=== PATIENT | female | born 1995 | race American Indian/Alaskan Native ===

== ENCOUNTER 2017-05-25 09:59 | Emergency (ER) | payer SELFPAY ==
[2017-05-25 11:01] VITALS: BP 133/71
[2017-05-25] MEDS ORDERED: XYLOCAINE 1% MPF 5 mL INFILTRATI ONE (17:04)
[2017-05-25] MEDS ORDERED: TORADOL IM ONE (17:04)
[2017-05-25] MEDS ORDERED: ROCEPHIN IM ONE (17:04)
--- NOTE | 2017-05-25 17:10 | Emergency Department Report ---
ED ENT HPI - General Chief complaint: Sore Throat Stated complaint: SORE THROAT Time Seen by Provider: 05/25/17 16:54 Source: patient Mode of arrival: Ambulatory Limitations: No Limitations - History of Present Illness Initial comments: 22 yo female who comes in today due to a sore throat times greater than one week. She states that it has caused her problems with swallowing as well. Denies any pertinent past medical history. States that it feels like razor blades when she attempts to swallow. Afebrile, vitals within normal limits. MD complaint: sore throat -: week(s) (one ) Severity: moderate Severity scale (0 -10): 8 Quality: sharp Consistency: constant Improves with: none Worsens with: swallowing Context-Epistaxis: other (none ) Context- Dental: other (none) Context- Ear: other (none) Associated Symptoms: pain with swallowing, sore throat - Related Data Previous Rx's Medication Instructions Recorded Last Taken Type Amoxicillin [Amoxicillin TAB] 875 mg PO BID #20 tablet 05/25/17 Unknown Rx Allergies Allergy/AdvReac Type Severity Reaction Status Date / Time No Known Allergies Allergy Unverified 05/25/17 10:58 ED Dental HPI - General Chief complaint: Sore Throat Stated complaint: SORE THROAT Time Seen by Provider: 05/25/17 16:54 Source: patient Mode of arrival: Ambulatory Limitations: No Limitations - Related Data Previous Rx's Medication Instructions Recorded Last Taken Type Amoxicillin [Amoxicillin TAB] 875 mg PO BID #20 tablet 05/25/17 Unknown Rx Allergies Allergy/AdvReac Type Severity Reaction Status Date / Time No Known Allergies Allergy Unverified 05/25/17 10:58 ED Review of Systems ROS: Stated complaint: SORE THROAT Other details as noted in HPI Constitutional: malaise Eyes: denies: eye pain, eye discharge, vision change ENT: as per HPI Respiratory: denies: cough, shortness of breath, wheezing Cardiovascular: denies: chest pain, palpitations Endocrine: no symptoms reported Gastrointestinal: denies: abdominal pain, nausea, diarrhea Genitourinary: denies: urgency, dysuria, discharge Musculoskeletal: denies: back pain, joint swelling, arthralgia Skin: denies: rash, lesions Neurological: denies: headache, weakness, paresthesias Psychiatric: denies: anxiety, depression Hematological/Lymphatic: denies: easy bleeding, easy bruising ED Past Medical Hx - Past Medical History Previous Medical History?: No - Surgical History Past Surgical History?: No - Social History Smoking Status: Current Every Day Smoker Substance Use Type: None - Medications Home Medications: Home Medications Medication Instructions Recorded Confirmed Last Taken Type Amoxicillin [Amoxicillin TAB] 875 mg PO BID #20 tablet 05/25/17 Unknown Rx ED Physical Exam - General Limitations: No Limitations General appearance: anxious - Head Head exam: Present: atraumatic, normocephalic - Eye Eye exam: Present: normal appearance - ENT ENT exam: Present: other (tonsillitis-right ) - Neck Neck exam: Present: lymphadenopathy (right anterior) - Respiratory Respiratory exam: Present: normal lung sounds bilaterally. Absent: respiratory distress - Cardiovascular Cardiovascular Exam: Present: regular rate, normal rhythm. Absent: systolic murmur, diastolic murmur, rubs, gallop - Extremities Exam Extremities exam: Present: normal inspection - Back Exam Back exam: Present: normal inspection - Neurological Exam Neurological exam: Present: alert, oriented X3 - Psychiatric Psychiatric exam: Present: anxious - Skin Skin exam: Present: warm, dry, intact, normal color. Absent: rash ED Course Vital Signs 05/25/17 10:58 Temperature 98.9 F Pulse Rate 77 Respiratory 16 Rate Blood Pressure 133/71 O2 Sat by Pulse 100 Oximetry - Reevaluation(s) Reevaluation #1: 05/25/17 17:43 Sore throat improved. Plan to discharge home with po antibiotics if she can swallow. ED Medical Decision Making - Medical Decision Making Tonsillitis-right Pharyngitis - Differential Diagnosis tonsillitis, pharyngitis Critical care attestation.: If time is entered above; I have spent that time in minutes in the direct care of this critically ill patient, excluding procedure time. ED Disposition Clinical Impression: Acute tonsillitis, Pharyngitis Disposition: - TO HOME OR SELFCARE Is pt being admited?: No Does the pt Need Aspirin: No Condition: Stable Instructions: Tonsillitis (ED), Pharyngitis (ED) Additional Instructions: Take medicine as prescribed. May take tylenol 650 mg by mouth every 6-8 hours as needed for pain and temperature greater than 100.4. Prescriptions: Amoxicillin [Amoxicillin TAB] 875 mg PO BID #20 tablet Referrals: PRIMARY CARE,MD [Primary Care Provider] - 3-5 Days Time of Disposition: 17:46
== END 2017-05-25 17:58 | disposition home or self-care (01) ==
LOC: ED 09:59
DX: J03.90 Acute tonsillitis, unspecified (principal); F17.200 Nicotine dependence, unspecified, uncomplicated
CPT/HCPCS: 87116; 87430; 96372; 99282; J0696; J1885; J2930

== ENCOUNTER 2017-06-10 08:45 | Emergency (ER) | payer SELFPAY ==
--- NOTE | 2017-06-10 13:47 | Emergency Department Report ---
HPI - General Chief Complaint: Sore Throat Time Seen by Provider: 06/10/17 13:46 - HPI HPI: Patient reports that she has swollen tonsils. She said her throat hurts at 110. Denies any drooling. Denies any nausea or vomiting. Denies any nasal congestion. Denies coughing, shortness of breath or problem controlling secretions. Denies any fever or chills. Patient says she was here on 2017 and he gave her amoxicillin but penicillin doesn't usually work for her so she is back today. ED Past Medical Hx - Past Medical History Previous Medical History?: No - Surgical History Past Surgical History?: No - Family History Family history: hypertension - Social History Smoking Status: Current Every Day Smoker Substance Use Type: Alcohol - Medications Home Medications: Home Medications Medication Instructions Recorded Confirmed Last Taken Type Amoxicillin [Amoxicillin TAB] 875 mg PO BID #20 tablet 05/25/17 Unknown Rx Amoxicillin/K Clav Tab [Augmentin 1 tab PO Q12HR 10 Days #20 tab 06/10/17 Unknown Rx 875 mg] Cetirizine HCl [ZyrTEC] 10 mg PO QAM 10 Days #10 capsule 06/10/17 Unknown Rx Fluticasone [Flonase] 1 spray NS QDAY 1 Days #1 bottle 06/10/17 Unknown Rx ED Review of Systems ROS: Stated complaint: SORE THROAT Other details as noted in HPI Comment: All other systems reviewed and negative Constitutional: no symptoms reported Eyes: denies: eye pain, eye discharge ENT: throat pain. denies: ear pain, congestion Respiratory: no symptoms reported Cardiovascular: denies: chest pain, palpitations, dyspnea on exertion, edema, syncope, paroxysmal nocturnal dyspnea Gastrointestinal: denies: nausea, vomiting Musculoskeletal: denies: back pain, joint swelling, arthralgia, myalgia Skin: denies: rash Neurological: denies: headache, numbness, paresthesias, confusion, abnormal gait Physical Exam - Physical Exam Vital Signs: Vital Signs 06/10/17 08:59 Temperature 98.8 F Pulse Rate 74 Respiratory 16 Rate Blood Pressure 160/82 O2 Sat by Pulse 100 Oximetry General: This is a 22-year-old female well-nourished well-developed in no acute distress. Physical Exam: Head: Normocephalic atraumatic Ears:BIateral TM congested without erythema and loss of bony landmarks. Augustus EAC with normal exam. No mastoid bone tenderness. Mouth: Moist, no pharyngeal erythema or exudate . Mild tonsillar erythema without exudate. UVULA midline and oral airways patent. No peritonsillar abscess Neck: Nontender to palpate, supple, normal range of motion. No adenopathy. No c- spine tenderness. Nose: Bilateral nasal mucosa congested/erythema with clear drainage. Maxillary and frontal sinuses tender to palpate. Eyes: Sclerae and conjunctiva without injection. Bilateral pupils equal and reactive to light. Bilateral lids are normal. Normal accommodation.BEOMI Lungs: Clear to auscultate bilaterally, no rhonchi wheezes or rales. Normal work of breathing and no chest wall tenderness CV: S1, S2. Regular rate and rhythm negative murmur. Capillary refill is less than 3 seconds Skin: Clean dry and intact, no rashes or lesions Psych: Normal mood and behavior ED Course Vital Signs 06/10/17 08:59 Temperature 98.8 F Pulse Rate 74 Respiratory 16 Rate Blood Pressure 160/82 O2 Sat by Pulse 100 Oximetry - Reevaluation(s) Reevaluation #1: 06/10/17 14:20 Patient stable throughout ED stay ED Medical Decision Making - Medical Decision Making ED course: Patient here report sore throat and that she came on 05/25/2017 and was treated for sore throat with amoxicillin which she said this usually work for her. I discussed the patient that her tonsils are large but I think that her sore throat is coming from sinus infection. Patient with bilateral TM congestion and bilateral nasal mucosal congestion with erythema and bilateral frontal or maxillary sinus tenderness to palpation. I Discussed with her that I' ll put her on antibiotic and she'll need follow-up with her primary care physician which she doesn't have one so refer her to some [facility]. It was undescended discharge instruction and treatment plan and discharged home in stable condition with prescription for Augmentin, Zyrtec and Flonase. Critical care attestation.: If time is entered above; I have spent that time in minutes in the direct care of this critically ill patient, excluding procedure time. ED Disposition Clinical Impression: Sinusitis Qualifiers: Sinusitis location: unspecified location Chronicity: unspecified Qualified Code (s): J32.9 - Chronic sinusitis, unspecified Acute pharyngitis Qualifiers: Pharyngitis/tonsillitis etiology: unspecified etiology Qualified Code(s): J02.9 - Acute pharyngitis, unspecified Disposition: - TO HOME OR SELFCARE Is pt being admited?: No Does the pt Need Aspirin: No Condition: Stable Instructions: Strep Throat (ED), Sinusitis (ED) Additional Instructions: Take medication as instructed Follow-up with [facility] in 2-3 days Flesh your sinuses out with saline nasal wash Prescriptions: Amoxicillin/K Clav Tab [Augmentin 875 mg] 1 tab PO Q12HR 10 Days #20 tab Cetirizine HCl [ZyrTEC] 10 mg PO QAM 10 Days #10 capsule Fluticasone [Flonase] 1 spray NS QDAY 1 Days #1 bottle Referrals: [facility] [Outside] - 06/12/17 Forms: Work/School Release Form(ED)
[2017-06-10 14:41] VITALS: BP 143/98
== END 2017-06-10 15:00 | disposition home or self-care (01) ==
LOC: ED 08:45
DX: J32.0 Chronic maxillary sinusitis (principal); J32.1 Chronic frontal sinusitis; J02.9 Acute pharyngitis, unspecified; F17.200 Nicotine dependence, unspecified, uncomplicated
CPT/HCPCS: 99282

== ENCOUNTER 2021-05-28 19:53 | Inpatient (IN) | payer MEDICAID ==
[2021-05-28] MEDS ORDERED: LIDOCAINE (2%) 20 MG/1 ML VIAL 20 ML MDV INFILTRATI ONE (21:12)
[2021-05-28] MEDS ORDERED: TERBUTALINE 1 MG/1 ML INJ SUB-Q PRN (21:12)
[2021-05-28] MEDS ORDERED: METHYLERGONOVINE MALEATE 0.2 MG/ML VIAL IM PRN (21:12)
[2021-05-28] MEDS ORDERED: LOPERAMIDE 2 MG CAP PO PRN (21:12)
[2021-05-28] MEDS ORDERED: BUTORPHANOL 2 MG/1 ML INJ IV PRN (21:12)
[2021-05-28] MEDS ORDERED: ONDANSETRON 4 MG/2 ML INJ IV PRN (21:12)
[2021-05-28] MEDS ORDERED: fentaNYL 100 MCG/2 ML INJ IV PRN (21:12)
[2021-05-28] MEDS ORDERED: NALOXONE 0.4 MG/1 ML INJ IV PRN (21:12)
[2021-05-28] MEDS ORDERED: ACETAMINOPHEN 325 MG TAB PO PRN (21:12)
[2021-05-28] MEDS ORDERED: miSOPROStol 200 MCG TAB PR PRN (21:12)
[2021-05-28] MEDS ORDERED: OXYTOCIN 10 UNIT/1 ML INJ IM PRN (21:12)
[2021-05-28] MEDS ORDERED: CARBOPROST TROMETHAMINE 250 MCG/1 ML INJ IM PRN (21:12)
[2021-05-28] MEDS ORDERED: MINERAL OIL 30 ML ORAL LIQD PO PRN (21:12)
[2021-05-28] MEDS: LACTATED RINGERS 1,000 ML IV SCH (21:43)
[2021-05-28] MEDS ORDERED: DINOPROSTONE 10 MG VAG SUPP VG ONE (22:00)
[2021-05-28] MEDS ORDERED: OXYTOCIN DRIP 30 UNITS/500 ML BAG IV SCH (22:00)
[2021-05-28] MEDS ORDERED: AMPICILLIN/NS 2 GM/100 ML 2 GM/100 ML BAG IV ONE (22:00)
[2021-05-28] MEDS ORDERED: AZITHROMYCIN 250 MG TAB PO ONE (22:16)
[2021-05-28 22:20] LABS: Hematocrit 38.7 % (30.3-42.9); Hemoglobin 12.7 gm/dl (10.1-14.3); Mean Corpuscular HGB Conc 33 % (30-34); Mean Corpuscular Volume 87 fl (79-97); Platelet Count 388 K/mm3 (140-440); Red Blood Count 4.45 M/mm3 (3.65-5.03); Red Cell Distribution Width 14.8 % (13.2-15.2)
[2021-05-29] MEDS ORDERED: AMPICILLIN/NS 1 GM/50 ML 1 GM/50 ML BAG IV SCH (02:00)
--- NOTE | 2021-05-29 06:24 | History and Physical Report ---
History of Present Illness Date of examination: 05/29/21 Date of admission: 05/28/21 21:12 Chief complaint: sent from [facility] for induction History of present illness: Pt is a 26 year old -[place] female GONZALO 05/20/21 at 41w2d who presented last night for induction of labor secondary to oligohydramnios noted on biophysical profile at [facility] office. She has had limited care at [facility] since 32 wks with comanagement by [facility] secondary to morbid obesity, IUGR of 7%ile noted on 04/21/21, morbid obesity, chlamydia treated with positive test of cure on 05/13/21. She is GBS positive. Of note, this patient was offered an induction date earlier in the , but she declined at that time. At 0512 am, on-call physician called because pt began having repetitive late decelerations and was kady every minute. She had just gotten up to the bathroom and her cervidil is thought to have fallen out in her transfer from the bed to the commode. She flushed the toilet and the cervidil is not recovered. Her contractions spaced out while on-call provider en route to hospital, and tracing is now Category I. Past History Past Medical History: other (morbid obesity ) Past Surgical History: no surgical history [employer]ATOR History: chlamydia (treated with positive test of cure ) Family/Genetic History: other (asthma ) Social history: no significant social history - Obstetrical History Expected Date of Delivery: 05/20/21 Actual Gestation: 41 Week(s) 2 Day(s) : 5 Para: 1 Hx # Term Pregnancies: 1 Number of Pregnancies: 0 Spontaneous Abortions: 2 Induced : 1 Number of Living Children: 1 Medications and Allergies Allergies Allergy/AdvReac Type Severity Reaction Status Date / Time No Known Allergies Allergy Unverified 05/25/17 10:58 Home Medications Medication Instructions Recorded Confirmed Last Taken Type Amoxicillin [Amoxicillin TAB] 875 mg PO BID #20 tablet 05/25/17 Unknown Rx Amoxicillin/K Clav Tab [Augmentin 1 tab PO Q12HR 10 Days #20 tab 06/10/17 Unknown Rx 875 mg] Cetirizine HCl [ZyrTEC] 10 mg PO QAM 10 Days #10 capsule 06/10/17 Unknown Rx Fluticasone [Flonase] 1 spray NS QDAY 1 Days #1 bottle 06/10/17 Unknown Rx Active Meds: Active Medications Acetaminophen (Acetaminophen 325 Mg Tab) 650 mg PO Q4H PRN PRN Reason: Pain, Mild (1-3) Butorphanol Tartrate (Butorphanol 2 Mg/1 Ml Inj) 1 mg IV Q2H PRN PRN Reason: Pain, Moderate(4-6) LABOR PAIN Carboprost Tromethamine (Carboprost Tromethamine 250 Mcg/1 Ml Inj) 250 mcg IM ONCE PRN PRN Reason: Uterine Bleeding Ephedrine Sulfate (Ephedrine Sulfate 50 Mg/1 Ml Inj) 10 mg IV Q2M PRN PRN Reason: Hypotension Fentanyl (Fentanyl 100 Mcg/2 Ml Inj) 100 mcg IV Q2H PRN PRN Reason: Pain,Severe (7-10) LABOR PAIN Oxytocin/Sodium Chloride (Pitocin/Ns 30 Unit/500ml) 30 units in 500 mls @ 2 mls/hr IV TITR CAMACHO; Protocol Lactated Ringer's (Lactated Ringers) 1,000 mls @ 125 mls/hr IV DIRECT CAMACHO Last Admin: 05/28/21 21:43 Dose: 125 mls/hr Oxytocin/Sodium Chloride (Pitocin/Ns 30 Unit/500ml) 30 units in 500 mls @ 40 mls/hr IV TITR CAMACHO; Protocol Ampicillin Sodium (Ampicillin/Ns 1 Gm/50 Ml) 1 gm in 50 mls @ 100 mls/hr IV Q4H CAMACHO; Protocol Loperamide HCl (Loperamide 2 Mg Cap) 2 mg PO ONCE PRN PRN Reason: give with Hemabate Methylergonovine Maleate (Methylergonovine Maleate 0.2 Mg/Ml Vial) 0.2 mg IM ONCE PRN PRN Reason: Uterine Bleeding Mineral Oil (Mineral Oil 30 Ml Oral Liqd) 30 ml PO QHS PRN PRN Reason: Constipation Misoprostol (Misoprostol 200 Mcg Tab) 800 mcg OK ONCE PRN PRN Reason: Uterine Bleeding Naloxone HCl (Naloxone 0.4 Mg/1 Ml Inj) 0.1 mg IV Q2MIN PRN PRN Reason: Res Rate </= 8 or 02 SAT < 92% Ondansetron HCl (Ondansetron 4 Mg/2 Ml Inj) 4 mg IV Q8H PRN PRN Reason: Nausea And Vomiting Oxytocin (Oxytocin 10 Unit/1 Ml Inj) 10 unit IM ONCE PRN PRN Reason: Uterine Bleeding Terbutaline Sulfate (Terbutaline 1 Mg/1 Ml Inj) 0.25 mg SUB-Q ONCE PRN PRN Reason: Hyperstimulation/Hypertonicity Review of Systems All systems: negative - Vital Signs Vital signs: Vital Signs Pulse BP Pulse Ox 87 118/64 97 05/28/21 21:06 05/28/21 21:06 05/28/21 21:06 Temp Pulse Resp BP Pulse Ox 74 95/51 99 05/29/21 06:15 05/29/21 06:15 05/29/21 06:14 - Physical Exam Breasts: Positive: deferred Abdomen: Positive: soft (gravid, obese ), other (edema of pannus ) Uterus: Positive: enlarged (gravid ) - Obstetrical FHR: category 2 Uterine Contraction Monitor Mode: External Cervical Dilatation: 3 (scant fluid at introitus ) Cervical Effacement Percentage: 50 station: -3 Uterine Contraction Pattern: Irregular Uterine Tone Measurement Phase: Resting Uterine Contraction Intensity: Mild Results Result Diagrams: 05/28/21 21:00 Abnormal lab results 05/28/21 Range/Units 21:00 WBC 11.7 H (4.5-11.0) K/mm3 All other labs normal. Assessment and Plan A: IUP at 41w2d Oligohydramnios Suspected SROM Suspected IUGR, though ultrasound with EFW not available at this time for review Morbid Obesity Limited Care Chlamydia infection with positive test of cure GBS Positive status P: Admit to labor and delivery Azithromycin 1 g PO now Ampicillin for GBS prophylaxis Pitocin induction Closely monitor maternal and status ].
[2021-05-29] MEDS ORDERED: AMPICILLIN/NS 2 GM/100 ML 2 GM/100 ML BAG IV ONE (06:30)
[2021-05-29] MEDS: LACTATED RINGERS 1,000 ML IV SCH ×6 (06:35→22:56)
[2021-05-29] MEDS: OXYTOCIN DRIP 30 UNITS/500 ML BAG IV SCH ×2 (08:10→13:54)
[2021-05-29] MEDS: AMPICILLIN/NS 1 GM/50 ML 1 GM/50 ML BAG IV SCH ×4 (10:29→22:56)
[2021-05-29] MEDS ORDERED: ePHEDrine SULFATE 50 MG/1 ML INJ IV PRN (11:00)
[2021-05-29] MEDS ORDERED: NALOXONE 2 MG/2 ML INJ IV PRN (11:00)
[2021-05-29] MEDS ORDERED: fentaNYL-BUPIV 2 MCG/ML-0.125% 200 MCG/100 ML BAG EPIDURAL SCH (11:00)
[2021-05-29] MEDS: ePHEDrine SULFATE 50 MG/1 ML INJ IV PRN ×3 (11:08→12:11)
--- NOTE | 2021-05-29 11:14 | Anesthesia Consultation ---
Anesthesia Consult and Med Hx Date of service: 05/29/21 - Airway Anesthetic Teeth Evaluation: Poor ROM Head & Neck: Adequate Mental/Hyoid Distance: Adequate Mallampati Class: Class II Intubation Access Assessment: Probably Good - Pulmonary Exam CTA: Yes - Cardiac Exam Cardiac Exam: RRR - Pre-Operative Health Status ASA Pre-Surgery Classification: ASA3 Proposed Anesthetic Plan: Epidural - Pulmonary Hx Smoking: No Hx Asthma: No Hx Respiratory Symptoms: No SOB: No COPD: No Home Oxygen Therapy: No Hx Pneumonia: No Hx Sleep Apnea: No - Cardiovascular System Hx Hypertension: No Hx Coronary Artery Disease: No Hx Heart Attack/AMI: No Hx Angina: No Hx Percutaneous Transluminal Coronary Angioplasty (PTCA): No Hx Cardia Arrhythmia: No Hx Pacemaker: No Hx Internal Defibrillator: No Hx Valvular Heart Disease: No Hx Heart Murmur: No Hx Peripheral Vascular Disease: No - Central Nervous System Hx Neuromuscular Disorder: No Hx Seizures: No CVA: No Hx Back Pain: Yes Hx Psychiatric Problems: No - Gastrointestinal Hx Ulcer: No Hx Gastroesophageal Reflux Disease: Yes - Endocrine Hx Renal Disease: No Hx End Stage Renal Disease: No Hx Cirrhosis: No Hx Liver Disease: No Hx Insulin Dependent Diabetes: No Hx Non-Insulin Dependent Diabetes: No Hx Thyroid Disease: No Hx Hypothyroidism: No Hx Hyperthyroidism: No - Hematic Hx Anemia: No Hx Sickle Cell Disease: No - Other Systems Hx Alcohol Use: Yes Hx Substance Use: No Hx Cancer: No Hx Obesity: Yes - Additional Comments Anesthesia Medical History Comments: No anesthesia complications- Elective AB and Labor Epidural
--- NOTE | 2021-05-29 11:18 | Progress Note ---
Labor Epidural - Labor Epidural Start Time: 10:30 Stop Time: 10:54 Performed by:: PILLO OLIVO Procedure: Patient is requesting a laboring epidural for laboring pain. Patient IDed, H&P reviewed, all questions and concerns were answered, and consent obtained. Patient placed in sitting position with monitors applied. Timeout performed immediately before start of procedure. Sterile prep and drape was performed. [3] ml of 1% lidocaine skin wheal at L[3]- L [4]. 17-gauge Tuohy epidural needle was advanced to loss of resistance with saline technique 8cm. Single dural perforation via 27 guage spinal needle placed through the shaft of Ep idural needle. Positive CSF via spinal needle. Spinal needle removed. Negative CSF negative blood via Epidural needle. Epidural catheter advanced to [12] centimeters. [NEGATIVE] Aspiration [NEGATIVE] test dose. Negative Paresthesia. Sterile dressing applied. Patient tolerated procedure.
--- NOTE | 2021-05-29 14:25 | Progress Note ---
Assessment and Plan - Patient Problems (1) Encounter for induction of labor Current Visit: Yes Status: Acute Plan to address problem: Initiate Pitocin, increase as tolerated Keep epidural off at this time until in active labor Closely monitor activity Give IV pain meds as needed Discussed plan or care with pt to continue Pitocin as tolerated, agrees with plan (2) Morbid obesity Current Visit: Yes Status: Acute (3) Oligohydramnios Current Visit: Yes Status: Acute Qualifiers: Fetus number: single or unspecified fetus Trimester: third trimester Qualified Code(s): O41.03X0 - Oligohydramnios, third trimester, not applicable or unspecified Subjective - Subjective Date of service: 05/29/21 Principal diagnosis: IOL secondary to oligo; MO Interval history: Pt is a 26 year old -Russian female GONZALO 05/20/21 at 41w2d who presented last night for induction of labor secondary to oligohydramnios noted on biophysical profile at [facility] office. She has had limited care at [facility] since 32 wks with comanagement by [facility] secondary to morbid obesity, IUGR of 7%ile noted on 04/21/21, morbid obesity, chlamydia treated with positive test of cure on 05/13/21. She is GBS positive. Of note, this patient was offered an induction date earlier in the , but she declined at that time. At 0512 am, on-call physician called because pt began having repetitive late decelerations and was kady every minute. She had just gotten up to the bathroom and her cervidil is thought to have fallen out in her transfer from the bed to the commode. She flushed the toilet and the cervidil is not recovered. Her contractions spaced out while on-call provider en route to hospital, strip was category 1 upon arrival to hospital. Patient reports: movement normal, contractions (irregular), no new complaints, no loss of fluid, no vaginal bleeding Objective - Vital Signs Vital Signs: Vital Signs - 12hr 05/29/21 05/29/21 05/29/21 02:26 02:31 02:36 Temperature Pulse Rate 77 75 84 Blood Pressure O2 Sat by Pulse 97 97 95 Oximetry O2 Sat by Pulse Oximetry [ Bilateral] 05/29/21 05/29/21 05/29/21 02:41 02:42 02:46 Temperature Pulse Rate 70 71 83 Blood Pressure O2 Sat by Pulse 96 94 95 Oximetry O2 Sat by Pulse Oximetry [ Bilateral] 05/29/21 05/29/21 05/29/21 02:48 02:51 02:56 Temperature Pulse Rate 88 92 H 64 Blood Pressure O2 Sat by Pulse 94 94 97 Oximetry O2 Sat by Pulse Oximetry [ Bilateral] 05/29/21 05/29/21 05/29/21 03:01 03:06 03:08 Temperature Pulse Rate 77 68 83 Blood Pressure O2 Sat by Pulse 96 95 94 Oximetry O2 Sat by Pulse Oximetry [ Bilateral] 05/29/21 05/29/21 05/29/21 03:11 03:14 03:16 Temperature Pulse Rate 81 76 78 Blood Pressure O2 Sat by Pulse 97 94 97 Oximetry O2 Sat by Pulse Oximetry [ Bilateral] 05/29/21 05/29/21 05/29/21 03:21 03:26 03:27 Temperature Pulse Rate 95 H 79 80 Blood Pressure O2 Sat by Pulse 97 96 94 Oximetry O2 Sat by Pulse Oximetry [ Bilateral] 05/29/21 05/29/21 05/29/21 03:31 03:36 03:40 Temperature Pulse Rate 76 77 81 Blood Pressure O2 Sat by Pulse 96 96 94 Oximetry O2 Sat by Pulse Oximetry [ Bilateral] 05/29/21 05/29/21 05/29/21 03:41 03:46 03:51 Temperature Pulse Rate 84 83 89 Blood Pressure O2 Sat by Pulse 97 99 98 Oximetry O2 Sat by Pulse Oximetry [ Bilateral] 05/29/21 05/29/21 05/29/21 03:56 04:00 04:01 Temperature Pulse Rate 81 90 73 Blood Pressure O2 Sat by Pulse 98 94 97 Oximetry O2 Sat by Pulse Oximetry [ Bilateral] 05/29/21 05/29/21 05/29/21 04:06 04:07 04:11 Temperature Pulse Rate 75 84 81 Blood Pressure O2 Sat by Pulse 95 94 97 Oximetry O2 Sat by Pulse Oximetry [ Bilateral] 05/29/21 05/29/21 05/29/21 04:14 04:16 04:20 Temperature Pulse Rate 73 73 86 Blood Pressure O2 Sat by Pulse 94 95 92 Oximetry O2 Sat by Pulse Oximetry [ Bilateral] 05/29/21 05/29/21 05/29/21 04:21 04:26 04:28 Temperature Pulse Rate 85 78 81 Blood Pressure O2 Sat by Pulse 95 96 94 Oximetry O2 Sat by Pulse Oximetry [ Bilateral] 05/29/21 05/29/21 05/29/21 04:31 04:39 04:44 Temperature Pulse Rate 87 81 79 Blood Pressure 100/46 O2 Sat by Pulse 94 99 97 Oximetry O2 Sat by Pulse Oximetry [ Bilateral] 05/29/21 05/29/21 05/29/21 04:49 04:54 04:59 Temperature Pulse Rate 82 74 84 Blood Pressure O2 Sat by Pulse 95 97 97 Oximetry O2 Sat by Pulse Oximetry [ Bilateral] 05/29/21 05/29/21 05/29/21 05:04 05:09 05:10 Temperature 98.9 F Pulse Rate 86 72 Blood Pressure O2 Sat by Pulse 95 99 Oximetry O2 Sat by Pulse Oximetry [ Bilateral] 05/29/21 05/29/21 05/29/21 05:14 05:17 05:19 Temperature Pulse Rate 82 80 87 Blood Pressure 108/52 O2 Sat by Pulse 99 99 Oximetry O2 Sat by Pulse Oximetry [ Bilateral] 05/29/21 05/29/21 05/29/21 05:24 05:29 05:34 Temperature Pulse Rate 87 87 85 Blood Pressure O2 Sat by Pulse 100 98 100 Oximetry O2 Sat by Pulse Oximetry [ Bilateral] 05/29/21 05/29/21 05/29/21 05:39 05:44 05:47 Temperature Pulse Rate 73 78 80 Blood Pressure 115/59 O2 Sat by Pulse 98 99 Oximetry O2 Sat by Pulse Oximetry [ Bilateral] 05/29/21 05/29/21 05/29/21 05:49 05:54 05:59 Temperature Pulse Rate 78 92 H 86 Blood Pressure O2 Sat by Pulse 99 99 100 Oximetry O2 Sat by Pulse Oximetry [ Bilateral] 05/29/21 05/29/21 05/29/21 06:04 06:09 06:14 Temperature Pulse Rate 82 74 76 Blood Pressure O2 Sat by Pulse 99 98 99 Oximetry O2 Sat by Pulse Oximetry [ Bilateral] 05/29/21 05/29/21 05/29/21 06:15 06:19 06:24 Temperature Pulse Rate 74 75 78 Blood Pressure 95/51 O2 Sat by Pulse 93 98 Oximetry O2 Sat by Pulse Oximetry [ Bilateral] 05/29/21 05/29/2105/29/22 06:27 06:29 06:34 Temperature Pulse Rate 80 98 H 92 H Blood Pressure O2 Sat by Pulse 94 98 97 Oximetry O2 Sat by Pulse Oximetry [ Bilateral] 05/29/21 05/29/21 05/29/21 06:39 06:44 06:45 Temperature Pulse Rate 83 74 69 Blood Pressure 98/49 O2 Sat by Pulse 97 97 Oximetry O2 Sat by Pulse Oximetry [ Bilateral] 05/29/21 05/29/21 05/29/21 06:49 06:54 06:59 Temperature Pulse Rate 94 H 77 78 Blood Pressure O2 Sat by Pulse 96 97 96 Oximetry O2 Sat by Pulse Oximetry [ Bilateral] 05/29/21 05/29/21 05/29/21 07:00 07:08 07:09 Temperature Pulse Rate 80 93 H 94 H Blood Pressure O2 Sat by Pulse 94 98 92 Oximetry O2 Sat by Pulse Oximetry [ Bilateral] 05/29/21 05/29/21 05/29/21 07:13 07:15 07:18 Temperature Pulse Rate 77 73 Blood Pressure 124/60 O2 Sat by Pulse 97 97 Oximetry O2 Sat by Pulse 97 Oximetry [ Bilateral] 05/29/21 05/29/21 05/29/21 07:23 07:28 07:29 Temperature Pulse Rate 81 71 74 Blood Pressure O2 Sat by Pulse 96 93 94 Oximetry O2 Sat by Pulse Oximetry [ Bilateral] 05/29/21 05/29/21 05/29/21 07:33 07:38 07:43 Temperature Pulse Rate 69 74 74 Blood Pressure O2 Sat by Pulse 96 96 96 Oximetry O2 Sat by Pulse Oximetry [ Bilateral] 05/29/21 05/29/21 05/29/21 07:48 07:53 07:58 Temperature Pulse Rate 79 80 80 Blood Pressure 100/58 O2 Sat by Pulse 96 97 95 Oximetry O2 Sat by Pulse Oximetry [ Bilateral] 05/29/21 05/29/21 05/29/21 08:03 08:08 08:13 Temperature Pulse Rate 80 83 84 Blood Pressure 110/54 O2 Sat by Pulse 95 97 96 Oximetry O2 Sat by Pulse Oximetry [ Bilateral] 05/29/21 05/29/21 05/29/21 08:18 08:23 08:24 Temperature Pulse Rate 79 75 81 Blood Pressure O2 Sat by Pulse 96 97 93 Oximetry O2 Sat by Pulse Oximetry [ Bilateral] 05/29/21 05/29/21 05/29/21 08:28 08:33 08:38 Temperature Pulse Rate 76 81 88 Blood Pressure O2 Sat by Pulse 96 95 98 Oximetry O2 Sat by Pulse Oximetry [ Bilateral] 05/29/21 05/29/21 05/29/21 08:51 08:56 09:01 Temperature Pulse Rate 81 87 79 Blood Pressure O2 Sat by Pulse 97 96 98 Oximetry O2 Sat by Pulse Oximetry [ Bilateral] 05/29/21 05/29/21 05/29/21 09:05 09:06 09:11 Temperature Pulse Rate 79 96 H 90 Blood Pressure O2 Sat by Pulse 94 98 99 Oximetry O2 Sat by Pulse Oximetry [ Bilateral] 05/29/21 05/29/21 05/29/21 09:13 09:16 09:21 Temperature Pulse Rate 88 83 86 Blood Pressure 135/75 O2 Sat by Pulse 99 99 Oximetry O2 Sat by Pulse Oximetry [ Bilateral] 05/29/21 05/29/21 05/29/21 09:26 09:31 09:45 Temperature Pulse Rate 80 79 94 H Blood Pressure O2 Sat by Pulse 99 98 98 Oximetry O2 Sat by Pulse Oximetry [ Bilateral] 05/29/21 05/29/21 05/29/21 09:47 09:50 09:55 Temperature Pulse Rate 88 73 81 Blood Pressure 169/77 133/70 O2 Sat by Pulse 93 98 98 Oximetry O2 Sat by Pulse Oximetry [ Bilateral] 05/29/21 05/29/21 05/29/21 10:00 10:05 10:07 Temperature Pulse Rate 74 80 81 Blood Pressure O2 Sat by Pulse 98 97 94 Oximetry O2 Sat by Pulse Oximetry [ Bilateral] 05/29/21 05/29/21 05/29/21 10:10 10:13 10:15 Temperature Pulse Rate 108 H 75 76 Blood Pressure 126/72 O2 Sat by Pulse 95 94 97 Oximetry O2 Sat by Pulse Oximetry [ Bilateral] 05/29/21 05/29/21 05/29/21 10:20 10:25 10:29 Temperature Pulse Rate 74 84 79 Blood Pressure 125/72 O2 Sat by Pulse 97 97 Oximetry O2 Sat by Pulse Oximetry [ Bilateral] 05/29/21 05/29/21 05/29/21 10:30 10:31 10:33 Temperature Pulse Rate 79 77 86 Blood Pressure 122/71 116/67 O2 Sat by Pulse 100 Oximetry O2 Sat by Pulse Oximetry [ Bilateral] 05/29/21 05/29/21 05/29/21 10:36 10:38 10:41 Temperature Pulse Rate 89 86 86 Blood Pressure 121/60 113/64 O2 Sat by Pulse 95 97 Oximetry O2 Sat by Pulse Oximetry [ Bilateral] 05/29/21 05/29/21 05/29/21 10:43 10:45 10:46 Temperature Pulse Rate 87 87 83 Blood Pressure 116/73 127/65 O2 Sat by Pulse 94 97 Oximetry O2 Sat by Pulse Oximetry [ Bilateral] 05/29/21 05/29/21 05/29/21 10:47 10:49 10:51 Temperature Pulse Rate 80 83 80 Blood Pressure 128/71 127/68 137/64 O2 Sat by Pulse 98 Oximetry O2 Sat by Pulse Oximetry [ Bilateral] 05/29/21 05/29/21 05/29/21 10:53 10:55 10:56 Temperature Pulse Rate 88 95 H 105 H Blood Pressure 127/58 117/68 O2 Sat by Pulse 96 Oximetry O2 Sat by Pulse Oximetry [ Bilateral] 05/29/21 05/29/21 05/29/21 10:57 10:59 11:01 Temperature Pulse Rate 90 81 80 Blood Pressure 111/65 119/57 110/56 O2 Sat by Pulse 90 97 Oximetry O2 Sat by Pulse Oximetry [ Bilateral] 05/29/21 05/29/21 05/29/21 11:03 11:05 11:06 Temperature Pulse Rate 83 93 H 91 H Blood Pressure 102/55 103/58 O2 Sat by Pulse 96 Oximetry O2 Sat by Pulse Oximetry [ Bilateral] 05/29/21 05/29/21 05/29/21 11:07 11:09 11:11 Temperature Pulse Rate 85 94 H 78 Blood Pressure 98/50 O2 Sat by Pulse 94 98 Oximetry O2 Sat by Pulse Oximetry [ Bilateral] 05/29/21 05/29/21 05/29/21 11:12 11:14 11:16 Temperature Pulse Rate 78 85 78 Blood Pressure 109/54 103/48 O2 Sat by Pulse 94 100 Oximetry O2 Sat by Pulse Oximetry [ Bilateral] 05/29/21 05/29/21 05/29/21 11:17 11:19 11:21 Temperature Pulse Rate 94 H 90 75 Blood Pressure 101/55 97/53 94/53 O2 Sat by Pulse 98 Oximetry O2 Sat by Pulse Oximetry [ Bilateral] 05/29/21 05/29/21 05/29/21 11:23 11:25 11:26 Temperature Pulse Rate 69 85 88 Blood Pressure 97/54 101/59 O2 Sat by Pulse 99 Oximetry O2 Sat by Pulse Oximetry [ Bilateral] 05/29/21 05/29/21 05/29/21 11:27 11:29 11:31 Temperature Pulse Rate 85 88 91 H Blood Pressure 102/54 104/52 98/49 O2 Sat by Pulse 99 Oximetry O2 Sat by Pulse Oximetry [ Bilateral] 05/29/21 05/29/21 05/29/21 11:33 11:35 11:36 Temperature Pulse Rate 85 96 H 83 Blood Pressure 96/46 82/47 O2 Sat by Pulse 99 Oximetry O2 Sat by Pulse Oximetry [ Bilateral] 05/29/21 05/29/21 05/29/21 11:39 11:41 11:43 Temperature Pulse Rate 91 H 91 H 81 Blood Pressure 109/51 99/55 99/58 O2 Sat by Pulse 92 98 Oximetry O2 Sat by Pulse Oximetry [ Bilateral] 05/29/21 05/29/21 05/29/21 11:45 11:46 11:47 Temperature Pulse Rate 82 91 H 78 Blood Pressure 108/51 102/50 O2 Sat by Pulse 99 Oximetry O2 Sat by Pulse Oximetry [ Bilateral] 05/29/21 05/29/21 05/29/21 11:50 11:51 11:53 Temperature Pulse Rate 93 H 82 73 Blood Pressure 132/46 109/49 106/47 O2 Sat by Pulse 99 Oximetry O2 Sat by Pulse Oximetry [ Bilateral] 05/29/21 05/29/21 05/29/21 11:55 11:56 11:58 Temperature Pulse Rate 87 90 82 Blood Pressure 94/52 94/50 O2 Sat by Pulse 100 Oximetry O2 Sat by Pulse Oximetry [ Bilateral] 05/29/21 05/29/21 05/29/21 11:59 12:01 12:03 Temperature Pulse Rate 85 87 85 Blood Pressure 91/51 91/50 81/50 O2 Sat by Pulse 100 Oximetry O2 Sat by Pulse Oximetry [ Bilateral] 01/15/22 01/15/22 01/15/22 12:06 12:11 12:14 Temperature Pulse Rate 82 113 H 89 Blood Pressure 92/55 O2 Sat by Pulse 97 98 Oximetry O2 Sat by Pulse Oximetry [ Bilateral] 05/29/21 05/29/21 05/29/21 12:16 12:21 12:22 Temperature Pulse Rate 86 84 91 H Blood Pressure 91/54 O2 Sat by Pulse 99 97 Oximetry O2 Sat by Pulse Oximetry [ Bilateral] 05/29/21 05/29/21 05/29/21 12:25 12:26 12:27 Temperature Pulse Rate 86 87 85 Blood Pressure 82/50 85/47 O2 Sat by Pulse 98 Oximetry O2 Sat by Pulse Oximetry [ Bilateral] 05/29/21 05/29/21 05/29/21 12:31 12:36 12:42 Temperature Pulse Rate 82 80 84 Blood Pressure 89/42 O2 Sat by Pulse 99 98 99 Oximetry O2 Sat by Pulse Oximetry [ Bilateral] 05/29/21 05/29/21 05/29/21 12:48 12:52 12:56 Temperature Pulse Rate 82 76 80 Blood Pressure 93/44 O2 Sat by Pulse 99 100 Oximetry O2 Sat by Pulse Oximetry [ Bilateral] 05/29/21 05/29/21 05/29/21 12:58 13:03 13:08 Temperature Pulse Rate 92 H 91 H 79 Blood Pressure O2 Sat by Pulse 99 100 100 Oximetry O2 Sat by Pulse Oximetry [ Bilateral] 05/29/21 05/29/21 05/29/21 13:12 13:17 13:23 Temperature Pulse Rate 82 84 88 Blood Pressure 96/55 O2 Sat by Pulse 100 100 100 Oximetry O2 Sat by Pulse Oximetry [ Bilateral] 05/29/21 05/29/21 05/29/21 13:26 13:28 13:32 Temperature Pulse Rate 77 72 74 Blood Pressure 102/52 O2 Sat by Pulse 100 100 Oximetry O2 Sat by Pulse Oximetry [ Bilateral] 05/29/21 05/29/21 05/29/21 13:38 13:42 13:47 Temperature Pulse Rate 99 H 80 80 Blood Pressure O2 Sat by Pulse 100 100 100 Oximetry O2 Sat by Pulse Oximetry [ Bilateral] 05/29/21 05/29/21 05/29/21 13:53 13:56 13:57 Temperature Pulse Rate 75 77 77 Blood Pressure 113/61 108/58 O2 Sat by Pulse 21 L 100 Oximetry O2 Sat by Pulse Oximetry [ Bilateral] 05/29/21 05/29/21 05/29/21 14:03 14:07 14:13 Temperature Pulse Rate 71 78 70 Blood Pressure O2 Sat by Pulse 100 98 100 Oximetry O2 Sat by Pulse Oximetry [ Bilateral] 05/29/21 05/29/21 14:18 14:22 Temperature Pulse Rate 75 85 Blood Pressure O2 Sat by Pulse 100 99 Oximetry O2 Sat by Pulse Oximetry [ Bilateral] - Exam Breasts: deferred Cardiovascular: Regular rate Lungs: Normal air movement Abdomen: Present: other (gravid) FHR: category 1 (moderate varibility with some variables noted, no late decels noted at this time) Uterine Contraction Monitor Mode: External Cervical Dilatation: 4 (vertex) Cervical Effacement Percentage: 50 ( head well engaged) station: -3 Uterine Contraction Frequency (min): 3-5 Uterine Contraction Pattern: Irregular Uterine Tone Measurement Phase: Resting Uterine Contraction Intensity: Mild - Labs Labs: Abnormal Labs 05/28/21 21:00 WBC 11.7 H Laboratory Results - last 24 hr 05/28/21 05/28/21 05/29/21 21:00 21:00 00:15 WBC 11.7 H RBC 4.45 Hgb 12.7 Hct 38.7 MCV 87 MCH 29 MCHC 33 RDW 14.8 Plt Count 388 Membranes Rupture Syphilis IgG Antibody Nonreactive Blood Type B POSITIVE Antibody Screen Negative 05/29/21 06:15 WBC RBC Hgb Hct MCV MCH MCHC RDW Plt Count Membranes Rupture Negative Syphilis IgG Antibody Blood Type Antibody Screen
[2021-05-30] MEDS: AMPICILLIN/NS 1 GM/50 ML 1 GM/50 ML BAG IV SCH (03:34)
[2021-05-30] MEDS ORDERED: LIDOCAINE 2%/EPINEPHRINE 1:200,000 VIAL (20 ML) INFILTRATI ONE (06:27)
--- NOTE | 2021-05-30 07:09 | Anesthesia Day of Surgery ---
Anesthesia Day of Surgery - Day of Surgery Patient Examined: Yes Patient H&P Reviewed: Yes Patient is NPO: Yes Beta Blockers: No Cardiac Clearance: No Pulmonary Clearance: No Cyril's Test: Negative
[2021-05-30] MEDS ORDERED: METOCLOPRAMIDE 10 MG/2 ML INJ IV SCH (07:30)
[2021-05-30] MEDS ORDERED: BICITRA ORAL LIQD 30ML PO SCH (07:30)
[2021-05-30] MEDS ORDERED: BICITRA ORAL LIQD 30ML ONE (07:50)
[2021-05-30] MEDS ORDERED: BUPIVACAINE/PF (0.25%) 2.5 MG/ML 30 ML VIAL INFILTRATI ONE (07:50)
[2021-05-30] MEDS ORDERED: METOCLOPRAMIDE 10 MG/2 ML INJ ONE (07:50)
[2021-05-30] MEDS ORDERED: FAMOTIDINE 20 MG/2 ML INJ IV ONE (07:50)
[2021-05-30] MEDS ORDERED: OXYTOCIN DRIP 30 UNITS/500 ML BAG IV SCH ×2 (08:00→12:30)
[2021-05-30] MEDS ORDERED: FAMOTIDINE 20 MG/2 ML INJ IV SCH (08:00)
[2021-05-30] MEDS ORDERED: LACTATED RINGERS 1,000 ML IV SCH (08:00)
[2021-05-30] MEDS ORDERED: SODIUM CHLORIDE 0.9% IRR 1,500 ML BOTTLE IR ONE (08:19)
[2021-05-30] MEDS ORDERED: WATER FOR IRRIG STERILE 1,500 ML BOTTLE IR ONE (08:19)
[2021-05-30] MEDS ORDERED: ONDANSETRON 4 MG/2 ML INJ ONE (08:52)
[2021-05-30] MEDS ORDERED: dexAMETHasone 20 MG/5 ML VIAL ONE (08:55)
--- NOTE | 2021-05-30 09:56 | Progress Note ---
Regional Anesthesia Block - Regional Anesthesia Block Start Time: :32 Stop Time: :34 Performed By:: PILLO OLIVO Procedure: Patient consented for TAP block for post surgical pain management. Patient identified, monitors placed, and time out performed. TAP identified bilaterally via ultrasound. Skin prepped bilaterally with [chlorhexidine] and [22g stimuplex] needle advanced to the TAP. [Marcaine 0.25% 30ml] injected under ultrasound guidance on the [left] side. [Marcaine 0.25% 30ml] injected under ultrasound guidance on the [right] side. Negative aspiration every 5mL, No change in heart rate or rhythm. Patient tolerated the procedure well. No apparent complications seen.
--- NOTE | 2021-05-30 10:03 | Procedure Note ---
OB Delivery Note - Delivery Date of Delivery: 05/30/21 Surgeon: CORNELIA HATFIELD Estimated blood loss: other (434 mL) - Section Preop diagnosis: arrest of dilation, nonreassuring FHR tracing Postop diagnosis: same section procedure: section, primary low transverse Disposition: PACU Narrative: Please see operative report. - A at 1 minute: 8 at 5 minutes: 9 Gender: Male (3370g (7lb 7oz) @ 0845 am)
--- NOTE | 2021-05-30 10:06 | Operative Report ---
Operative Report Operative Report: Date of procedure: May 30, 2021 Preoperative diagnosis: 1) IUP at 41w3d 2) Failure to Progress 3) Int olerance to Labor 4) Morbid Obesity BMI 44 5) Meconium Postoperative diagnosis: Same Procedure: Primary low transverse section Surgeon: Estelle Martinez M.D. Anesthesia: Regional Findings 1) Viable male , Apgars 8 and 9, weight 3370 g, (7 lb 7 oz) in cephalic presentation. Nuchal cord x 1. Thick meconium. 2) Normal-appearing uterus ovaries and tubes Estimated blood loss: 434 mL IV fluids: 2600 mL Urine output: 350 mL, clear at the end of the procedure Drains: [place] to gravity Specimens: None Complications:None. Counts correct x 3 Disposition: Stable to PACU Indication for procedure: Pt is a 26 year old art 41w3d was initially admitted for induction of labor secondary to oligohydramnios. She arrested at 4 cm dilation and the fetus began having repetitive lates. The decision was made to proceed with delivery. Operation in detail: After the risks, benefits, alternatives and complications were explained to the patient she gave informed consent for the procedure. She was subsequently taken to the operating room where regional anesthesia was noted to be adequate. She was placed in the dorsal supine position with leftward tilt and prepped and drap ed in a normal sterile fashion. heart tones were noted prior to incision. A timeout was performed. A Pfannenstiel skin incision was made with the knife and carried down to the layer of the fascia with the Bovie. The fascia was incised in the midline and the fascial incision was extended bilaterally with the Bovie. The fascial incision was then stretched. The rectus muscles were then in the midline and partially transected for adequate visualization. The peritoneum was then entered bluntly. The peritoneal incision was extended with good visualization of the bladder. The peritoneal incision was then stretched. An Shawn retractor was placed. The bladder blade was then placed. The vesicouterine peritoneum was grasped with smooth pick ups and incised with Metzenbaum scissors. A bladder flap was then created digitally and the bladder blade was replaced. A transverse incision was made in the lower uterine segment with a knife and extended bilaterally with the bandage scissors. Amniotomy was performed with egress of meconium stained fluid. head delivered with ease, followed by shoulders and body. bulb suctioned at delivery. Cord clamped and cut. handed to NICU staff in attendance. The placenta was then delivered manually. The uterus was cleared of all clots and debris. The hysterotomy was then reapproximated with 0 Monocryl in a running locked fashion. A second layer of the same suture was used in imbricating fashion. The hysterotomy was inspected and hemostasis was noted. The gutters were irrigated and cleared of all clots and debris. The uterus was placed back into the peritoneal cavity. The hysterotomy was again inspected and noted to be hemostatic. Surgicel was placed over the hysterotomy. The Shawn retractor was removed. The peritoneum was reapproximated with 0 Monocryl in a running fashion incorporating the rectus muscles. Surgicel was placed over the rectus muscles. The fascia was reapproximated with 0 Vicryl in a running fashion. The subcutaneous tissue was reapproximated with 3-0 Vicryl in a running fashion. The skin was reapproximated with 4-0 Monocryl in a subcuticular fashion. The incision was then covered with steri strips and a pressure dressing. The procedure was then ended. The patient tolerated the procedure well and was taken to the PACU in stable condition. All instrument, lap, and needle counts were correct 3.
[2021-05-30] MEDS: KETOROLAC 30 MG/1 ML INJ IV SCH ×2 (12:18→19:54)
[2021-05-30] MEDS ORDERED: SIMETHICONE 80 MG CHEW TAB PO PRN (12:30)
[2021-05-30] MEDS ORDERED: MORPHINE 2 MG/1 ML INJ IV PRN (12:30)
[2021-05-30] MEDS ORDERED: LANOLIN/ZINC/DIMETHICONE (LANSINOH) 7 GM TP PRN (12:30)
[2021-05-30] MEDS ORDERED: IBUPROFEN 800 MG TAB PO PRN (12:30)
[2021-05-30] MEDS ORDERED: NALOXONE 0.4 MG/1 ML INJ IV PRN (12:30)
[2021-05-30] MEDS ORDERED: MORPHINE 4 MG/1 ML INJ IV PRN (12:30)
[2021-05-30] MEDS ORDERED: oxyCODONE /ACETAMINOPHEN 5-325MG TAB PO PRN (12:30)
[2021-05-30] MEDS ORDERED: WITCH HAZEL/ GLYCERIN PAD TP PRN (12:30)
[2021-05-30] MEDS ORDERED: D5W/LACTATED RINGERS 1,000 ML IV SCH (12:30)
[2021-05-30] MEDS ORDERED: ceFAZolin/NS 1 GM/50 ML 1 GM/50 ML BAG IV SCH (13:00)
[2021-05-30] MEDS: ceFAZolin/NS 1 GM/50 ML 1 GM/50 ML BAG IV SCH (16:51)
[2021-05-30] MEDS ORDERED: MAGNESIUM HYDROXIDE (MOM) ORAL LIQD UDC PO PRN (22:00)
[2021-05-30 23:26] LABS: Hematocrit 36.5 % (30.3-42.9); Hemoglobin 11.7 gm/dl (10.1-14.3)
[2021-05-31] MEDS: ceFAZolin/NS 1 GM/50 ML 1 GM/50 ML BAG IV SCH (00:56)
[2021-05-31] MEDS: KETOROLAC 30 MG/1 ML INJ IV SCH ×2 (02:49→09:35)
[2021-05-31] MEDS ORDERED: TETANUS,DIPH,PERTUSS(ACELL) VACCINE 0.5 ML SYRINGE IM ONE (08:00)
--- NOTE | 2021-05-31 08:09 | Progress Note ---
Assessment and Plan A: POD#1 s/p primary section Morbid Obesity Oligohydramnios Limited Care Chlamydia infection with positive test of cure, treated during this hospitalization P: Routine postop care Per pt request, anticipate discharge tomorrow Subjective - Subjective Date of service: 05/31/21 Principal diagnosis: POD#1 s/p primary section Interval history: Patient is feeling very well this morning. She is tolerating a regular diet. She has voided. She is passing flatus and has had a bowel movement. Her lochia is decreasing. Patient reports: appetite normal, voiding normally, pain well controlled, flatus, bowel movement, ambulating normally, no dizzy ambulation [place]: doing well Objective - Vital Signs Latest vital signs: Vital Signs Temp Pulse Resp BP BP Pulse Ox Pulse Ox 05/31/21 04:45 98.3 F 76 18 128/63 99 05/31/21 03:19 18 05/31/21 02:49 18 05/31/21 01:30 18 05/31/21 01:00 18 05/31/21 00:27 98.0 F 84 20 144/85 95 05/30/21 20:24 18 05/30/21 20:00 99 05/30/21 19:54 18 05/30/21 15:46 97.6 F 82 18 134/79 94 05/30/21 12:30 99.1 F 86 18 117/68 97 98 05/30/21 10:55 86 17 148/76 100 05/30/21 10:40 83 16 142/78 96 05/30/21 10:25 87 17 123/73 98 05/30/21 10:10 97 H 18 118/75 97 05/30/21 10:05 93 H 18 119/72 98 05/30/21 10:00 66 17 102/41 98 05/30/21 09:55 98.1 F 88 19 108/66 97 Intake and Output 05/30/21 05/31/21 05/31/21 22:59 06:59 14:59 Intake Total 290 480 Output Total 2400 250 Balance -2110 230 Intake: IV 50 ANCEF/NS 1 GM/50 ML 1 gm 50 In 50 ml @ 100 mls/hr IV Q8H [facility] Rx#:[id number] Oral 240 480 Output: Urine 2400 250 Indwelling Catheter 2400 Void 250 Other: Total, Intake Amount 240 480 Total, Output Amount 200 250 - Exam Breasts: Present: deferred Abdomen: Present: soft (obese ) Uterus: Present: fundal height below umbilicus Extremities: Present: edema (trace) Incision: Present: dressed
[2021-05-31] MEDS ORDERED: KETOROLAC 30 MG/1 ML INJ IV SCH (09:30)
[2021-05-31] MEDS ORDERED: MEASLES, MUMPS & RUBELLA 12,500 UNIT/0.5 ML VACCINE SUB-Q ONE (11:00)
--- NOTE | 2021-05-31 15:34 | Post Anesthesia Evaluation ---
- Post Anesthesia Evaluation Patient Participated: Yes Airway Patent: Yes Stable Respiratory Function: Yes Nausea/Vomiting: No Temp > 96.8F: Yes Pain Manageable: Yes Adequeate Hydration: Yes Anesthesia Complications: No Block Receding Appropriately: Yes Patient on Ventilator: No
[2021-05-31] MEDS: IBUPROFEN 800 MG TAB PO PRN ×2 (16:47→22:06)
[2021-06-01] MEDS: IBUPROFEN 800 MG TAB PO PRN ×2 (03:58→12:28)
--- NOTE | 2021-06-01 08:02 | Discharge Summary ---
Providers - Providers Date of Admission: 05/28/21 21:12 Date of discharge: 06/01/21 Attending physician: CORNELIA HATFIELD 05/30/21 12:08 Consult to Hvac Estimator [CONS] Routine Reason For Exam: Primary care physician: CORNELIA HATFIELD Hospitalization Reason for admission: induction of labor Delivery: (Failure to progress, NRFHTs) Procedure: primary low transverse Incision: normal, dry, intact Other procedures: none complications: none Discharge diagnosis: IUP at term delivered baby: male Hospital course: Patient presented to hospital for IOL, however she underwent a primary C/S for failure to progress and NRFHTs. Her course was uncomplicated and she met discharge criteria on day 2 Condition at discharge: Good Disposition: 01 HOME / SELF CARE / HOMELESS Plan - Discharge Medications Prescriptions: Ibuprofen [Motrin] 800 mg PO Q8HR PRN #30 tablet PRN Reason: Pain, Moderate (4-6) oxyCODONE /ACETAMINOPHEN [Percocet 5/325] 1 tab PO Q6HR PRN #30 tablet PRN Reason: Pain - Provider Discharge Summary Activity: no sex for 6 weeks, no heavy lifting 4 weeks, no strenuous exercise Diet: routine Instructions: routine Additional instructions: [] Smoking cessation referral if applicable(refer to patient education folder for contact #) [] Refer to [facility]'s [facility] Booklet Call your doctor immediately for: * Fever > 100.5 * Heavy vaginal bleeding ( >1 pad per hour) * Severe persistent headache * Shortness of breath * Reddened, hot, painful area to leg or breast * Drainage or odor from incision. * Keep incision clean and dry at all times and follow doctor's instructions regarding bathing/showering Please call the office to schedule newborns circumcision. - Follow up plan Follow up: CORNELIA HATFIELD MD [Primary Care Provider] - 14 Days
--- NOTE | 2021-06-01 08:02 | Progress Note ---
Assessment and Plan A: POD# 2 s/p C/S at term P: Continue with routine care with discharge anticipated this morning. Subjective - Subjective Date of service: 06/01/21 Principal diagnosis: POD#2 s/p primary section Interval history: Patient is feeling well this morning, bonding with her infant. She reports adequate pain control, decreasing lochia, no problems with ambulation. She also reports +flatus and +bowel movement. She desires to go home today. Patient reports: appetite normal, voiding normally, pain well controlled, flatus, bowel movement, ambulating normally [place]: doing well Objective - Vital Signs Latest vital signs: Vital Signs Temp Pulse Resp BP Pulse Ox Pulse Ox 06/01/21 03:58 18 06/01/21 00:30 98.6 F 72 16 104/78 05/31/21 22:41 100 05/31/21 22:06 18 05/31/21 16:05 98.5 F 96 H 20 139/80 98 05/31/21 09:55 99 05/31/21 08:15 98.7 F 94 H 20 118/58 97 Intake and Output 05/31/21 05/31/21 06/01/21 15:59 23:59 07:59 Intake Total 680 320 Output Total 1100 400 Balance -420 -80 Intake: Oral 680 320 Output: Urine 1100 400 Void 1100 400 Other: Total, Intake Amount 120 320 Total, Output Amount 600 400 # Voids Void 1 - Exam Uterus: Present: firm, fundal height at umbilicus
[2021-06-01 11:43] VITALS: BP 127/70
== END 2021-06-01 13:25 | disposition home or self-care (01) | DRG 765 ==
LOC: LD 19:53 → UNDOADMIN 19:53 → LD 21:12 → APU 05-30 08:22 → OB 05-30 12:24
PROVIDERS: ADMIT Obstetrics & Gynecology; ATTEND Obstetrics & Gynecology
PROC: 10D00Z1 Extraction of Products of Conception, Low, Open Approach (ICD-10-PCS; principal; 2021-05-30)
PROC: 3E0234Z Introduction of Serum, Toxoid and Vaccine into Muscle, Percutaneous Approach (ICD-10-PCS; 2021-05-31)
PROC: 3E0134Z Introduction of Serum, Toxoid and Vaccine into Subcutaneous Tissue, Percutaneous Approach (ICD-10-PCS; 2021-05-31)
DX: O76 Abnormality in fetal heart rate and rhythm complicating labor and delivery (principal); O41.03X0 Oligohydramnios, third trimester, not applicable or unspecified; O98.82 Other maternal infectious and parasitic diseases complicating childbirth; O32.4XX0 Maternal care for high head at term, not applicable or unspecified; Z3A.41 41 weeks gestation of pregnancy; Z37.0 Single live birth; O99.824 Streptococcus B carrier state complicating childbirth; Z20.822 Contact with and (suspected) exposure to COVID-19; O99.214 Obesity complicating childbirth; E66.01 Morbid (severe) obesity due to excess calories; O99.62 Diseases of the digestive system complicating childbirth; O62.0 Primary inadequate contractions; O77.0 Labor and delivery complicated by meconium in amniotic fluid; O69.81X0 Labor and delivery complicated by cord around neck, without compression, not applicable or unspecified; Z23 Encounter for immunization
CPT/HCPCS: 36415; 59200; 84112; 85014; 85018; 85027; 86592; 86850; 86900; 86901; 88307; G0378; J3490; J7121; J0290; J0690; J1100; J1885; J2270; J2405; J2590; J7120; U0003